=== PATIENT | male | born 2005 | race African-American/Black ===

== ENCOUNTER 2024-04-04 22:46 | Emergency (ER) | payer OTHER, SELFPAY ==
[2024-04-04 22:49] VITALS: BP 140/87
[2024-04-04 23:01] LABS: Urine Albumin Trace (Neg - Trace); Urine Bilirubin Negative (Negative); Urine Character Clear (Clear); Urine Color Yellow; Urine Glucose Negative (Negative); Urine Ketone Negative (Negative); Urine Leukocyte 2+ (Negative); Urine Nitrite Negative (Negative); Urine Occult Blood 1+ (Negative); Urine Urobilinogen Negative (Neg - 1+)
[2024-04-04 23:08] LABS: Urine Bacteria Many (Negative); Urine Squamous Cell 0-2 /LPF (Few); Urine White Cell 90-100 /HPF (0-5)
[2024-04-04 23:10] LABS: Urine Mucus Moderate
--- NOTE | 2024-04-04 23:32 | ED.GENMED ---
Addendum entered and electronically signed by Diana Cobos PA-C 04/05/24 15:30:
tested pos for both gonorrhea and chlmaydia
already on treatment
no change required
informed about other STI tsting and safe sex
Original Note:
History of Present Illness
General
Chief Complaint: Male Genito-Urinary Symptoms
Time Seen by Provider: 04/04/24 23:15
History of Present Illness
History of Present Illness:
18-year-old male without significant past medical history presenting for concern of STD. Patient reports in the past few days he has been having burning with urination and noticed some discharge from his penis. Does admit to recent sexual
encounter, unprotected. Denies any lesions to the penis. Denies abdominal pain. Denies fever. Denies additional acute medical complaints
Phy Exam
Physical Exam
Physical Exam:
General: Well-appearing, no clinical signs of dehydration, nontoxic and in no acute distress
HEENT: protecting airway
Neck: appears supple
CV: Normal heart rate
Resp: No accessory muscle use, no increased work of breathing
Abd: no distension
Extremities: No deformities, no swelling
Neuro: alert, no focal neurologic deficit
: no lesions, scant discharge from ureteral meatus
Rectal: deferred
Psych: Normal affect
Skin: Intact
Course
Orders/Labs/Results
Orders:
Orders
04/04/24 22:56
Urinalysis Urgent
Date Specimen was Collected: 04/04/24
Time Specimen was Collected: 22:54
Urine Microscopic Urgent
Date Specimen was Collected: 04/04/24
Time Specimen was Collected: 22:54
Chlamydia/GC by PCR Urgent
YRN Source: Urine
Specimen Description:
Source:: URINE
Date Specimen was Collected: 04/04/24
Time Specimen was Collected: 22:54
04/04/24 23:32
Ceftriaxone Sodium [Rocephin] 500 mg IM NOW STA
Doxycycline [Vibramycin] 100 mg PO NOW STA
Abnormal Lab Results
04/04/24
22:56
Urine Occult Blood 1+ A
(Negative)
Ur Leukocyte Esterase 2+ A
(Negative)
Urine RBC 3-6 A /HPF
(0-2)
Urine WBC 90-100 A /HPF
(0-5)
Urine Bacteria Many A
(Negative)
Vital Signs
Initial and Last Documented VS:
Initial Vital Signs
Temp Pulse Resp BP Pulse Ox
98.2 F 64 18 140/87 98
04/04/24 22:49 04/04/24 22:49 04/04/24 22:49 04/04/24 22:49 04/04/24 22:49
Last Documented Vital Signs
Temp Pulse Resp BP Pulse Ox
98.2 F 64 18 140/87 98
04/04/24 22:49 04/04/24 22:49 04/04/24 22:49 04/04/24 22:49 04/04/24 22:49
MDM/Problems Addressed
MDM/Problems Addressed:
18-year-old male without significant past medical history presenting for concern of STD. Vital signs are normal.
On exam patient is well-appearing, no acute distress or discomfort. Patient reports some dysuria, discharge from the penis. On exam, there is some scant discharge to the ureteral meatus. At this time do suspect STD. Gonorrhea and Chlamydia test
sent. Urine with bacteria. Will preemptively treat for STD. Otherwise feel stable for discharge. Advised informing sexual partner, and abstaining from sex for the next 1 to 2 weeks. Return precautions discussed and safe sexual practices
discussed. Patient verbalized understanding.
*Critical Care Note
Total Time (30-74mins, 75-104mins- exclusive of procedures): Not Applicable
ED Attending Note
-
Portions of this chart may have been created with voice recognition software.� Occasional wrong word or��sound alike� substitutions may have occurred due to the inherent limitations of voice recognition software.
Discharge Plan
Departure
Patient Disposition: Home (Routine Discharge)
Date of Disposition: 04/04/24
Time of Disposition: 23:35
Patient with high blood pressure during this ER visit?: No
Condition: Good
Discharge Problem:
Sexually transmitted disease (STD)
Instructions: Chlamydia and gonorrhea, Sexually Transmitted Infections ED
Prescriptions:
New
doxycycline hyclate 100 mg capsule
100 mg PO BID 7 Days Qty: 14 0RF
Activity Restrictions/Additional Instructions:
You were seen in the emergency department for burning with urination and discharge
You are suspected to have a sexually transmitted disease
Please follow-up closely with your primary care physician. Please abstain from any sexual intercourse for the next 1 to 2 weeks and inform any sexual partner
Return to the emergency department for any worsening of your symptoms, or any development of chest pain, difficulty breathing, abdominal pain with persistent vomiting and inability to tolerate food or liquid by mouth (concern for dehydration),
weakness, headache or confusion, fever greater than 100.4, or any additional symptoms that are concerning to you.
Thank you for choosing [facility].
Interventions
Interventions:
*Risk Screen - Suicide Last Done: 04/04/24 22:49
*Neglect/Abuse Screening Last Done: 04/04/24 22:49
Discharge Date and Time
Print Language: ESTONIAN
[2024-04-05] MEDS: VIBRAMYCIN 100 MG PO
[2024-04-05] MEDS: ROCEPHIN 500 MG IM (00:02)
== END 2024-04-05 00:09 | disposition home or self-care (01) ==
LOC: EMR 22:46
PROVIDERS: Emergency Medicine; EMERGENCY PHYSICIAN Student in an Organized Health Care Education/Training Program; PRIMARYCARE PHYSICIAN Nurse Practitioner Pediatrics
DX: R30.0 Dysuria (principal); A54.9 Gonococcal infection, unspecified; A56.8 Sexually transmitted chlamydial infection of other sites
CPT/HCPCS: 99284; 96372; 81003; 81015; 87491; 87591

== ENCOUNTER 2024-12-18 20:23 | Emergency (ER) | payer OTHER, SELFPAY ==
[2024-12-18 20:42] VITALS: BP 111/82
[2024-12-18 23:44] VITALS: BP 110/76
--- NOTE | 2024-12-19 00:31 | ED.MUSCINJ ---
HPI-Injury
General
Chief Complaint: Musculo-Skeletal Complaint
Source: patient
Exam Limitations: none
Time Seen by Provider: 12/18/24 23:09
Nursing documentation reviewed up to this point in time: agreed with
History of Present Illness-Injury
Is this injury a work related problem?: No
Is pt an associate of [facility]/[place]?: No
Initial Injury comments:
Closed door on finger accidentally COmplains of pain to distal 5th finger. Subungal hematoma present. To ED accompanied by family for eval.
Past History
Past History
ED Past Medical History: None
Review of Systems
Review of Systems
Allergies reviewed?: Yes
All Other Systems: ROS reviewed and negative except as documented in HPI and ROS
Constitutional: Reports no symptoms
Musculoskeletal: Reports joint pain (pain, subungal hematoma right distal 5th finger)
Skin: Reports no symptoms
Neurological: Reports no symptoms
Psychiatric: Reports no symptoms
Musculoskeletal Injury Exam
Musculoskeletal Injury Exam
Right Distal Fifth Finger:
Pain with Movement?: Moderate
Tender to palpation?: Moderate
Soft tissue swelling?: Moderate
External deformity and angulation?: None
Joint effusion?: None
Contusion?: Moderate
Hematoma-local bleeding into tissue?: Moderate
Strain- Sprain- Tear (Connective tissue injury)?: None
Crepitus with movement?: No
Joint instability?: No
Malalignment/deformity?: No
Range of motion: Full
Distal skin color and temperature: normal-warm & good color
Capillary Refill: normal
Normal distal neurovascular exam?: Yes
Peripheral Pulses: radial (right): 3+
Phy Exam
General Physical Exam
General Presentation: well appearing and mild distress
General age: appears stated age
General Skin: warm and dry
General Habitus: normal
General Mental: alert
Musculoskeletal Exam
Musculoskeletal Exam: full ROM and neuro vasc intact
Skin Exam
Skin Exam: normal color, warm/dry and no rash
Psychiatric Exam
Psychiatric Exam: normal mood/affect
Injury Course
Orders/Labs/Results
Orders:
Orders
12/18/24 20:44
CR Finger(s)/thumb Min 2 Vw Rt Urgent
Comment:
Reason For Exam: pain, swelling, injury
Indicate Which Finger:: Little Finger
Procedures
Nail Trepanation/Felon
Method of Drainage: nail cauterized (subungal hematoma successfully drained)
Sterile dressing applied: Yes
Finger splint applied: Yes
*Radiology
Radiology exam reviewed: radiology read reviewed
*Pulse Oximetry
SaO2: 98
Oxygen Mode of Delivery: Room air
Patient hypoxic: no
*Critical Care Note
Total Time (30-74mins, 75-104mins- exclusive of procedures): Not Applicable
ED Attending Note
-
Portions of this chart may have been created with voice recognition software.� Occasional wrong word or��sound alike� substitutions may have occurred due to the inherent limitations of voice recognition software.
Discharge Plan
Departure
Patient Disposition: Home (Routine Discharge)
Date of Disposition: 12/18/24
Time of Disposition: 23:34
Patient with high blood pressure during this ER visit?: No
Condition: Good
Covid-19: Not Applicable
Discharge Problem:
Subungual hematoma
Instructions: Using Cold for Pain, Bruising Under the Nail
Prescriptions:
No Action
doxycycline hyclate 100 mg capsule
100 mg PO BID 7 Days Qty: 14 0RF
Referrals:
UNKNOWN - PT DOES,NOT KNOW [Family Provider]
Stand Alone Forms: Return to Work
Interventions
Interventions:
*Risk Screen - Suicide Last Done: 12/18/24 20:42
*General Assessment Last Done: 12/18/24 23:48
*Neglect/Abuse Screening Last Done: 12/18/24 23:48
*Nursing Disposition Last Done: 12/18/24 23:49
ED-Musculoskeletal Assessment Last Done: 12/18/24 23:42
Discharge Date and Time
Discharge Date/Time: 12/18/24 23:50
Print Language: [id number]
== END 2024-12-18 23:50 | disposition home or self-care (01) ==
LOC: EMR 20:23
PROVIDERS: EMERGENCY PHYSICIAN Student in an Organized Health Care Education/Training Program
DX: S60.151A Contusion of right little finger with damage to nail, initial encounter (principal); W23.0XXA Caught, crushed, jammed, or pinched between moving objects, initial encounter
CPT/HCPCS: 99283; 11740; 29130; 73140